=== PATIENT | female | born 1955 | race Caucasian/White ===

== ENCOUNTER 2016-09-26 10:06 | Inpatient (IN) | payer BC ==
[2016-08-28 14:13] VITALS: BMI 38.0
--- NOTE | 2016-08-28 14:47 | PAT Medication Instructions ---
Service Date August 28, 2016. Current Home Medication List Acetaminophen (Tylenol Arthritis Ext Rel), 2 TAB PO daily PRN for Pain Amitriptyline Hcl (Elavil), 25 MG PO HS Calcium (Caltrate), 1,200 MG PO BID Cholecalciferol (Vitamin D 1000 Unit), 1,000 INTER.UNIT PO QAM Cyanocobalamin (Vitamin B12 500MCG), 1,000 MCG PO QAM Etodolac (Etodolac), 1 TAB PO BID Ginkgo Biloba (Ginkgo Biloba), 120 MG PO QAM Egdfupxjvza-Lxzbxmdwhbc-Zlm C- (Glucosamine Chondroitin), 1 TABS PO BID Levothyroxine Sodium (Levothyroxine Sodium), 1 TAB PO QAM Multivitamins/Minerals (Mvi With Minerals), 1 TAB PO QPM Omeprazole (Omeprazole), 1 TAB PO QAM Turmeric (Curcuma Longa) (Turmeric), 538 MG PO QAM Vitamin E (Vitamin E 400 Iu), 400 INTER.UNIT PO QPM Medication Instructions For Your Scheduled Surgery - Hold the following medications 2 weeks prior to surgery: Turmeric (Curcuma Longa) (Turmeric), 538 MG PO QAM Vitamin E (Vitamin E 400 Iu), 400 INTER.UNIT PO QPM Vpscvghynwo-Lnvgvlluivc-Bpv C- (Glucosamine Chondroitin), 1 TABS PO BID Ginkgo Biloba (Ginkgo Biloba), 120 MG PO QAM - Hold the following medications 7 days prior to surgery per surgeon instructions: Etodolac (Etodolac), 1 TAB PO BID - Hold the following medications the morning of surgery: Cholecalciferol (Vitamin D 1000 Unit), 1,000 INTER.UNIT PO QAM Cyanocobalamin (Vitamin B12 500MCG), 1,000 MCG PO QAM Calcium (Caltrate), 1,200 MG PO BID - Take the following medications the morning of surgery with a sip of water: Omeprazole (Omeprazole), 1 TAB PO QAM Levothyroxine Sodium (Levothyroxine Sodium), 1 TAB PO QAM Acetaminophen (Tylenol Arthritis Ext Rel), 2 TAB PO daily PRN for Pain (if needed) - Take the following medications as scheduled the night before surgery: Multivitamins/Minerals (Mvi With Minerals), 1 TAB PO QPM Calcium (Caltrate), 1,200 MG PO BID Acetaminophen (Tylenol Arthritis Ext Rel), 2 TAB PO daily PRN for Pain Amitriptyline Hcl (Elavil), 25 MG PO HS If you have any questions please call us at [phone] or [phone] ( Becky) or [phone]
[2016-08-28 15:28] LABS: BASO % 0.2 %; BASO ABS # 0.01 K/uL (0-0.2); COMPLETE YES; EOS % 1.4 %; HEMATOCRIT 40.2 % (37-47); IG% 0.2 %; LYMPH % 25.3 %; LYMPH ABS # 1.22 K/uL (1.2-3.4); MEAN CORPUSCULAR HGB CONC 32.6 g/dl (32-36); MEAN PLATELET VOLUME 9.8 fL (7.4-10.4); MONO % 8.7 %; NEUT % 64.2 %; PLATELET COUNT 184 K/uL (130-400); RED BLOOD COUNT 4.37 M/uL (4.2-5.4); WHITE BLOOD COUNT 4.83 K/uL (4.8-10.8)
[2016-08-28 15:32] LABS: URINE APPEARANCE CLEAR (CLEAR); URINE BILIRUBIN NEG (NEG); URINE COLOR YELLOW; URINE NITRITE NEG (NEG); URINE PH 5.5 (4.5-7.5); URINE SPECIFIC GRAVITY 1.016 (1.000-1.030); UROBILINOGEN NEG (NEG); ZZUR CULT IF INDIC CLEAN CATCH NO
--- NOTE | 2016-08-28 15:34 | DIAGNOSTIC IMAGING REPORT ---
CHEST PREADMISSION(PA/LAT) CLINICAL HISTORY: PAT preoperative evaluation COMPARISON STUDY: No previous studies for comparison. FINDINGS: The bones soft tissues and hemidiaphragms are normal. The cardiomediastinal silhouette is normal. The lungs are clear. The pulmonary vasculature is normal. IMPRESSION: Negative chest. Electronically signed by: Boom Penny M.D. 08/28/2016 3:33 PM Dictated Date/Time: 08/28/2016 3:30 PM
[2016-08-28 15:38] LABS: MANUAL MICROSCOPIC REQUIRED? NO; PARTIAL THROMBOPLASTIN RATIO 1.1; PROTHROMBIN TIME (PATIENT) 10.9 SECONDS (9.0-12.0); REVIEW REQ? NO
[2016-08-28 16:37] LABS: BUN/CREATININE RATIO 23.2 (10-20); CALCIUM 9.4 mg/dl (8.5-10.1); CREATININE 0.51 mg/dl (0.60-1.20)
[2016-08-29 06:52] LABS: ESTIMATED AVERAGE GLUCOSE 108 mg/dl; HA1C FLAG Normal (Normal)
--- NOTE | 2016-09-25 22:46 | HISTORY & PHYSICAL EXAMINATION ---
DATE OF ADMISSION: 09/26/2016 CHIEF COMPLAINT: Right knee pain. HISTORY OF PRESENT ILLNESS: This is a 60-year-old female patient of Dr. Howe, complaining of chronic right knee pain, longstanding, now progressively getting worse. The patient has been diagnosed with end-stage osteoarthritis per clinical and radiographic exams. She has failed conservative treatment including narcotic medications and Tylenol. She has increased pain with weightbearing activities and her pain does interfere with her activities of daily living. PAST MEDICAL HISTORY: Carpal tunnel, hypothyroidism, osteoarthritis, sciatica, acid reflux, obesity, breast cancer, dental issues. SOCIAL HISTORY: She was a lifelong smoker, quit in 1992. She is a cjd-zwznw-zfr-week drinker. SURGICAL HISTORY: Bunion surgery on her right foot and meniscal surgery in one of her knees. FAMILY HISTORY: Noncontributory. REVIEW OF SYSTEMS: The patient complains of chronic right knee pain. Otherwise, denies any shortness of breath, chest pain, nausea, vomiting or any other joint complaints. MEDICATIONS: Include calcium daily, vitamin E daily, vitamin D daily, Turmeric 538 mg daily, ginkgo biloba daily, vitamin B12 daily, Centrum Silver daily, omeprazole 20 mg daily, levothyroxine 150 mcg daily, amitriptyline 25 mg daily, and etodolac 500 mg b.i.d. ALLERGIES: No known drug allergies. PHYSICAL EXAMINATION: GENERAL: Well-developed, well-nourished 60-year-old female in no acute distress. She is alert and oriented x3 and pleasant. HEENT: Normocephalic, atraumatic. Extraocular motions are intact. Pupils are equal and reactive to light. HEART: Regular rate and rhythm, no murmurs. LUNGS: Clear. ABDOMEN: Soft, nontender, bowel sounds present. EXTREMITIES: Right knee reveals a negative 15 to 90 degrees of motion. She has a varus deformity. She has medial joint line tenderness with effusion. She has crepitation with passive range of motion. She has 5/5 strength. NEUROLOGIC: Neurovascularly, she is intact in her right lower extremity. DIAGNOSES: Right knee end-stage osteoarthritis, carpal tunnel syndrome, hypothyroidism, osteoarthritis, acid reflux, obesity, history of breast cancer. PLAN: The patient was advised of her diagnosis. Indications, risks, benefits, and postop course have all been reviewed. The patient wished to proceed with right total knee arthroplasty. Necessary consent forms, preoperative testing and clearances will be obtained.
[2016-09-26] VITALS (7 sets, daily range): BP systolic 119–172; BP diastolic 72–89; PULSE 65–80; TEMP 36.5–36.9; O2SAT 93–96; Ht 162.6 cm; Wt 101.1 kg
[~2016-09-26] VITALS: Ht 162.6 cm; Wt 101.1 kg
[~2016-09-26 10:06] MED LIST: ACET1TAB84 PO; ACETAMINOPHEN 500 MG TAB PO SCH; AMT50 PO; BUPIVACAINE 0.25% 30 ML VIAL ONE; BUPIVACAINE 0.5 % 5 MG/1 ML PF 10ML VIAL ONE; CALCTAB5 PO; CEFAZOLIN 2000 MG/60 ML D5W 60 ML IV SCH; CHOL100027 PO; CYAN500T13 PO; CeleBREX 200 MG CAP PO SCH; DEXAMETHASONE 4 MG TAB PO SCH; ETOD500T95 PO; FAMOTIDINE 20 MG TAB PO SCH; GABAPENTIN 300 MG CAP PO SCH; GINK60CA2 PO; GLUCTAB7 PO; LACTATED RINGER'S 1000ML 1,000 ML IV SCH; LACTATED RINGER'S 1000ML IV SCH; LACTATED RINGER'S 500 ML IV SCH; LEVO150T9 PO; METOCLOPRAMIDE HCL 10 MG TAB PO SCH; MULTTAB PO; OMEP20TA PO; ROPIVACAINE 5MG/ML 30 ML 150 MG, BUPIVACAINE/EPINEPHR 0.5% MPF 30 ML, KETOROLAC TROMETH... INFIL SCH; TURM500T PO; VITA400C3 PO
[2016-09-26] MEDS ORDERED: TRAM-10 PO (10:50)
[2016-09-26] MEDS ORDERED: MIDAZOLAM HCL 1 MG/ML 2ML VIAL ONE (12:42)
--- NOTE | 2016-09-26 13:10 | History & Physical Bridge Note ---
H&P Re-Evaluation Bridge Note: I have examined the patient, reviewed the History & Physical and in the interval since the performance of the History & Physical I have noted the following changes of clinical significance: No changes noted
[2016-09-26] MEDS ORDERED: ORTHO JOINT ANESTHETIC ONE (13:20)
[2016-09-26] MEDS ORDERED: POVIDONE-IODINE OP SOLN 30 ML BTL ONE (13:20)
[2016-09-26] MEDS ORDERED: BACITRACIN 50000 UNIT VIAL ONE (13:20)
[2016-09-26] MEDS: TRANEXAMIC ACID INJ 1,000 MG in SODIUM CHLORIDE 0.9% 100ML 100 ML IV SCH ×2 (13:21→18:23)
[2016-09-26] MEDS ORDERED: PROPOFOL IV EMULSION 10 MG/ML 20 ML VIAL IV ONE (15:07)
[2016-09-26] MEDS ORDERED: PROMETHAZINE HCL INJ 12.5 MG in SODIUM CHLORIDE 0.9% 50ML 50 ML IV PRN (15:15)
[2016-09-26] MEDS ORDERED: FLUMAZENIL 0.1 MG/1 ML 10 ML VIAL IV PRN (15:15)
[2016-09-26] MEDS ORDERED: PHENYLEPHRINE 100MCG/ML 5ML SYR IV PRN (15:15)
[2016-09-26] MEDS ORDERED: ATROPINE SULFATE 0.1 MG/ML 5ML SYR IV PRN (15:15)
[2016-09-26] MEDS ORDERED: NALOXONE HCL 0.4 MG/1 ML VIAL/CARP IV PRN (15:15)
[2016-09-26] MEDS ORDERED: ONDANSETRON INJ 2 MG/ML 2 ML VIAL IV PRN ×2 (15:15→15:45)
[2016-09-26] MEDS ORDERED: EpHEDrine SULFATE INJ 50 MG/ML AMP IV PRN (15:15)
[2016-09-26] MEDS ORDERED: TRAMADOL HCL 50 MG TAB PO PRN (15:45)
[2016-09-26] MEDS ORDERED: SOD PHOSPHATE/SOD BIPHOSPHATE ENEMA 132 ML BTL PR PRN (15:45)
[2016-09-26] MEDS ORDERED: BISACODYL 10 MG SUPP PR PRN (15:45)
[2016-09-26] MEDS ORDERED: ZOLPIDEM TARTRATE 5 MG TAB PO PRN (15:45)
[2016-09-26] MEDS ORDERED: MoRPHine SULFATE 2 MG/ML CARP IV PRN (15:45)
[2016-09-26] MEDS ORDERED: MAGNESIUM HYDROXIDE SUSP 30 ML UDC PO PRN (15:45)
--- NOTE | 2016-09-26 15:53 | [facility] Operative Report ---
Operative Report Operative Date Sep 26, 2016. Pre-Operative Diagnosis Right knee degenerative joint disease,obesity Post-Operative Diagnosis same Procedure(s) Performed right total knee replacement Surgeon Dr. Rory Moreau Instructor Extension Work Surgeon(s) Boom Talbot PA-C Estimated Blood Loss 5 ml Findings tricompartmental djd oa chronic acl tear varus grade 4 medial Specimens a. right knee bone and tissue Drains 2 hemovac Anesthesia spinal sedation and regional and orthomix Complication(s) None Disposition Recovery Room / PACU Indications end stage bilateral knee djd I attest to the content of the Intraoperative Record and any orders documented therein. Any exceptions are noted below.
--- NOTE | 2016-09-26 16:07 | Anesthesiology Progress Note ---
Anesthesia Post Op Note Date & Time Sep 26, 2016 at 16:06 Vital Signs Pain Intensity: 0 Vital Signs Past 12 Hours Date Time Temp Pulse Resp B/P (MAP) Pulse Ox O2 Delivery O2 Flow Rate FiO2 09/26/16 15:55 77 16 138/85 97 Nasal Cannula 2 09/26/16 15:45 36.6 77 16 140/79 94 Room Air 09/26/16 10:34 36.6 80 20 172/72 96 Notes Mental Status: alert / awake / arousable, participated in evaluation Pt Amnestic to Procedure: Yes Nausea / Vomiting: adequately controlled Pain: adequately controlled Airway Patency, RR, SpO2: stable & adequate BP & HR: stable & adequate Hydration State: stable & adequate Neuraxial Anesthesia: was administered, sensory block is resolving Anesthetic Complications: no major complications apparent
--- NOTE | 2016-09-26 16:19 | DIAGNOSTIC IMAGING REPORT ---
TWO VIEWS RIGHT KNEE CLINICAL HISTORY: Postoperative examination. FINDINGS: AP and crosstable lateral portable views of the right knee are obtained. A right knee arthroplasty is in near anatomic alignment. There has been undersurface remodeling of the patella. No acute fracture is seen. There are expected postoperative changes around the knee including skin clips, a surgical drain, soft tissue edema, and subcutaneous gas. IMPRESSION: Expected postoperative changes status post right knee arthroplasty. No acute fracture is seen. Electronically signed by: Suman Mcintyre M.D. 09/26/2016 4:18 PM Dictated Date/Time: 09/26/2016 4:17 PM
--- NOTE | 2016-09-26 17:46 | Medical Consult ---
Consultation Note Date of Service Sep 26, 2016. Consultation Note DATE OF ADMISSION: 09/26/2016 DATE OF CONSULT: 09/26/16 REASON FOR CONSULT: Post operative medical management status post right knee arthroplasty HISTORY OF PRESENT ILLNESS: This is a 60-year-old female patient with PMH as mentioned below who is under orthopedic service for Right knee arthroplasty. Patient is post operative day 0. Pain is controlled. No chest pain, SOB, fever, chills, abdominal pain nausea, vomiting. We have been consulted for medical management post operatively. PAST MEDICAL HISTORY: Carpal tunnel, hypothyroidism, osteoarthritis, sciatica, acid reflux, obesity, breast cancer, dental issues. PAST SURGICAL HISTORY: Bunion surgery on her right foot and meniscal surgery in one of her knees. SOCIAL HISTORY: She was a lifelong smoker, quit in 1992. She is a amd-jvvuj-yil-week drinker. FAMILY HISTORY: Noncontributory. REVIEW OF SYSTEMS: As per HPI and rest of the systems reviewed and negative. MEDICATIONS: Include calcium daily, vitamin E daily, vitamin D daily, Turmeric 538 mg daily, ginkgo biloba daily, vitamin B12 daily, Centrum Silver daily, omeprazole 20 mg daily, levothyroxine 150 mcg daily, amitriptyline 25 mg daily, and etodolac 500 mg b.i.d. ALLERGIES: No known drug allergies. PHYSICAL EXAMINATION: GENERAL: Awake, allert and oriented x3 and pleasant. HEENT: Normocephalic, atraumatic. No icterus HEART: Regular rate and rhythm, no murmurs. LUNGS: AEBE, no wheezing, rhonchi ABDOMEN: Soft, nontender, bowel sounds present. EXTREMITIES: S/P Right knee arthroplasty , Drain + NEUROLOGIC: AAOX3, Limited due to right knee arthroplasty DIAGNOSES: Right knee end-stage osteoarthritis, carpal tunnel syndrome, hypothyroidism, osteoarthritis, acid reflux, obesity, history of breast cancer. ASSESSMENT AND PLAN: STATUS POST RIGHT KNEE ARTHROPLASTY POD # 0 -Pain mx, Wound care, DVT prophylaxis, PT/OT per primary team -Monitor H & H HYPOTHYROIDISM -Continue with synthroid GERD -Protonix HX OF BREAST CARCINOMA In remission DVT PROPHYLAXIS Per primary team DISPOSITION Per primary team Thank you for allowing us to participate in the care of this patient.
--- NOTE | 2016-09-26 18:52 | OPERATIVE REPORT ---
DATE OF OPERATION: 09/26/2016 INDICATION FOR PROCEDURE: The patient is a 60-year-old female with chronic bilateral knee pain with end-stage osteoarthritis in both of her knees with severe arthritis. She is obese. She has failed all conservative management including injection therapy. Her radiographs demonstrate that she has tricompartmental DJD both of her knees with bone on bone medial compartment bilaterally. PREOPERATIVE DIAGNOSIS: End-stage osteoarthritis, right knee. POSTOPERATIVE DIAGNOSIS: Same. PROCEDURE: Right total knee arthroplasty. SURGEON: Dr. Moreau. ROTARY DRUM TANNER: SIRI Lou ANESTHESIA: Spinal, Orthomix and regional block. OPERATIVE PROCEDURE: The patient had a spinal anesthetic placed and a regional block placed in the holding area, transferred to the operating room and placed under sedation. Exam of her knee demonstrates she had a very obese upper thigh. She had a flexion contracture about 10 degrees and flexion only to 90 degrees. There was no instability with varus valgus stress. A pneumatic tourniquet was placed over obese upper thigh and her right lower extremity was prepped and draped with ChloraPrep. The leg was elevated, exsanguinated with an Esmarch bandage. Pneumatic tourniquet was raised to 350 mmHg because of her obesity. Anterior incision was made across the right knee. Skin was incised longitudinally through the subcutaneous tissues down to the fascia. Subcutaneous flaps were elevated. Incision was made through medial retinaculum and extended up in the mid third of the quadriceps tendon and extended down to the medial tibial tubercle. Intraarticular findings demonstrated she had a chronic ACL tear, PCL was still intact. She had notch osteophytes, she had large tricompartmental osteophytes. She has [id number] in the medial compartment, had significant tricompartmental disease. She had no pseudolaxity. I used the [employer] Journey 2.0, total knee arthroplasty system using [place]-the [employer] MRI templating. She was templated for a size 5 femur and 4 tibia. To expose the knee the infrapatellar fat pad was resected and some of the fat pad over the anterior femur was resected. Lateral synovial bands which were fairly thick were released. The PCL was resected. The meniscal remnants were resected. I did a release subperiosteally around the medial tibial plateau releasing the MCL subperiosteally around the medial and posterior medial aspect of the knee to help balance the ligaments on the medial side. The femur was exposed. The custom femoral cutting block was pinned in position. The distal femoral cut was made. Then the size 5 5-in-1 cutting block was placed in position and the anterior, posterior and chamfer cuts were made. The knee was extended and a subperiosteal peel lateral release was performed around the patella and the patella width was measured and width was reproduced using a freehand cut technique and a 32 mm patellar component. The drill holes for the patella were made and then the excess lateral facet of patella was beveled off to prevent any impingement. The tibia was then subluxed and the custom tibial cutting block was pinned in position and the proximal tibial cut was made. We used the laminar communications programmer to assess the ligamentous balance in extension and flexion reassured with some more posterior medial release that we had balanced extension and flexion gaps. The tibia was then re-subluxed. The 4 tibial trial baseplate was externally rotated in line with the tibial tubercle, pinned in position. The punch for the stem was used. Then, the 5 femoral trial was inserted, centered and the notch cutting devices were used. A collet was placed and then the 12 poly insert gave balanced ligaments through full range of motion and patella tracked centrally. The trials were removed. The Orthomix anesthetic cocktail was injected per protocol. The knee was copiously irrigated with pulsatile lavage antibiotic solution and bacitracin. The final components were cemented with Simplex G cement. The final components were the 5 Oxinium right [employer]hew Journey 2.0 posterior stabilized femoral component, the 4 tibial baseplate, the 12 mm posterior stabilized high flex poly insert and 32 mm patella. While the cement was curing, the knee was soaked with Betadine soap per protocol. The knee was copiously irrigated with pulsatile lavage antibiotic solution and bacitracin again, 2 drains were brought out laterally connected to Hemovac. The quadriceps tendon and medial retinaculum were closed with interrupted [id number] #1 Vicryl sutures. The knee was taken through range of motion and appeared secure. The patient had 0 through 120 degrees range of motion. The wound was again irrigated. The subcutaneous tissue was closed with interrupted 2-0 Vicryl and the skin was closed with dionne and we applied a superficial wound VAC because of her obesity. SIRI Lou was my bilingual office assistant and functioned as bilingual office assistant for the entire procedure. He assisted in patient positioning, prepping, draping, soft tissue retraction, leg positioning, and instrument management during the procedure. He assisted in the subcutaneous skin closure also applied the superficial wound VAC. He will participate in postoperative care of the patient. I attest to the content of the Intraoperative Record and any orders documented therein. Any exception s are noted below.
[2016-09-26] MEDS ORDERED: MoRPHine SULFATE 4 MG/ML 1 ML CARP\\VIAL IV PRN (19:15)
[2016-09-26] MEDS: OXYCODONE HCL 10 MG TABCR (OXYCONTIN) PO SCH (21:52)
[2016-09-26] MEDS: TOCOPHERYL, DL-ALPHA 400 INTER.UNIT CAP PO SCH (21:52)
[2016-09-26] MEDS: D5W AND 1/2NSS + 20MEQ KCL 1,000 ML IV SCH (21:52)
[2016-09-26] MEDS: CALCIUM 600MG + VIT D 400 IU TAB PO SCH (21:52)
[2016-09-26] MEDS: ASPIRIN 81 MG ECTAB PO SCH (21:52)
[2016-09-26] MEDS: DOCUSATE SODIUM 100 MG CAP PO SCH (21:52)
[2016-09-26] MEDS: AMITRIPTYLINE HCL 25 MG TAB PO SCH (21:53)
[2016-09-26] MEDS: ACETAMINOPHEN 500 MG TAB PO SCH (21:54)
[2016-09-26] MEDS: CEFAZOLIN IV 2,000 MG in DEXTROSE 5% 50ML 50 ML IV SCH (22:19)
[2016-09-26] MEDS: OXYCODONE HCL IR 5 MG TAB (IMMEDIATE RELEASE) PO PRN (23:38)
[2016-09-27] MEDS: OXYCODONE HCL IR 5 MG TAB (IMMEDIATE RELEASE) PO PRN ×5 (03:30→20:54)
[2016-09-27 04:37] VITALS: BP 100/58; PULSE 74; TEMP 36.5; O2SAT 96
[2016-09-27] MEDS: D5W AND 1/2NSS + 20MEQ KCL 1,000 ML IV SCH ×2 (05:22→13:17)
[2016-09-27] MEDS: LEVOTHYROXINE 150 MCG TAB PO SCH (05:22)
[2016-09-27] MEDS: CEFAZOLIN IV 2,000 MG in DEXTROSE 5% 50ML 50 ML IV SCH (05:22)
[2016-09-27] MEDS: ACETAMINOPHEN 500 MG TAB PO SCH ×3 (05:23→22:15)
[2016-09-27 07:06] LABS: HEMATOCRIT 33.3 % (37-47); MEAN CELL VOLUME 91.5 fL (80-100); MEAN CORPUSCULAR HEMOGLOBIN 30.8 pg (25-34); MEAN CORPUSCULAR HGB CONC 33.6 g/dl (32-36); MEAN PLATELET VOLUME 9.7 fL (7.4-10.4); PLATELET COUNT 172 K/uL (130-400); RED BLOOD COUNT 3.64 M/uL (4.2-5.4); WHITE BLOOD COUNT 10.61 K/uL (4.8-10.8)
[2016-09-27 07:31] LABS: BUN/CREATININE RATIO 16.1 (10-20); CALCIUM 8.2 mg/dl (8.5-10.1); CREATININE 0.6 mg/dl (0.60-1.20); POTASSIUM 4.1 mmol/L (3.5-5.1)
[2016-09-27 07:37] VITALS: BP 116/72; PULSE 70; TEMP 36.7; O2SAT 97
[2016-09-27 08:31] VITALS: O2SAT 97
[2016-09-27] MEDS: CALCIUM 600MG + VIT D 400 IU TAB PO SCH ×2 (08:55→20:56)
[2016-09-27] MEDS: CHOLECALCIFEROL 1000 INTER.UNIT TAB PO SCH (08:56)
[2016-09-27] MEDS: ASPIRIN 81 MG ECTAB PO SCH ×2 (08:56→20:56)
[2016-09-27] MEDS: PANTOprazole SOD 40 MG TAB PO SCH (08:56)
[2016-09-27] MEDS: MULTIVITAMIN TAB PO SCH (08:56)
[2016-09-27] MEDS: CYANOCOBALAMIN 500 MCG TAB (VIT B-12) PO SCH (08:56)
[2016-09-27] MEDS: DOCUSATE SODIUM 100 MG CAP PO SCH ×2 (08:56→20:56)
[2016-09-27] MEDS: OXYCODONE HCL 10 MG TABCR (OXYCONTIN) PO SCH ×2 (08:59→20:55)
--- NOTE | 2016-09-27 10:29 | Anesthesiology Progress Note ---
Anesthesia Post Op Note Date & Time Sep 27, 2016 at 10:29 Vital Signs Pain Intensity: 0.0 Vital Signs Past 12 Hours Date Time Temp Pulse Resp B/P (MAP) Pulse Ox O2 Delivery O2 Flow Rate FiO2 09/27/16 08:31 97 Room Air 09/27/16 07:40 Room Air 09/27/16 07:37 36.7 70 14 116/72 (87) 97 Room Air 09/27/16 04:37 36.5 74 16 100/58 (72) 96 Room Air 09/26/16 23:38 Room Air 09/26/16 22:53 36.8 76 18 132/74 (93) 93 Room Air Notes Mental Status: alert / awake / arousable, participated in evaluation Pt Amnestic to Procedure: Yes Nausea / Vomiting: adequately controlled Pain: adequately controlled Airway Patency, RR, SpO2: stable & adequate BP & HR: stable & adequate Hydration State: stable & adequate Neuraxial Anesthesia: was administered, sensory block resolved Anesthetic Complications: no major complications apparent
[2016-09-27 11:59] VITALS: BP 130/78; PULSE 87; TEMP 36.8; O2SAT 99
--- NOTE | 2016-09-27 12:42 | Orthopedic Progress Note ---
Orthopedic Progress Note Date of Service Sep 27, 2016. Subjective Post OP Day: 1 Reports: feeling well, pain controlled w PO medications, Denies: complaints, chest pain, SOB, nausea / vomiting, light headedness, calf pain Objective calves soft nontender, N/V intact, capillary refill less than 2 sec., dressing C /D/I, A&O x3, toes mobile Date Time Temp Pulse Resp B/P (MAP) Pulse Ox O2 Delivery O2 Flow Rate FiO2 09/27/16 11:59 36.8 87 16 130/78 (95) 99 Room Air 09/27/16 08:31 97 Room Air 09/27/16 07:40 Room Air 09/27/16 07:37 36.7 70 14 116/72 (87) 97 Room Air 09/27/16 04:37 36.5 74 16 100/58 (72) 96 Room Air 09/26/16 23:38 Room Air 09/26/16 22:53 36.8 76 18 132/74 (93) 93 Room Air 09/26/16 19:25 36.9 70 17 120/74 (89) 95 Room Air 09/26/16 18:37 36.9 65 16 144/89 (107) 95 Room Air 09/26/16 17:50 36.6 69 16 119/75 (90) 93 Room Air 09/26/16 17:10 36.5 72 16 148/82 (104) 93 Nasal Cannula 2.0 09/26/16 16:40 95 Nasal Cannula 2.0 09/26/16 16:40 95 Nasal Cannula 2.0 09/26/16 16:15 36.4 75 16 122/86 95 Nasal Cannula 2 09/26/16 16:05 74 16 125/80 95 Nasal Cannula 2 09/26/16 15:55 77 16 138/85 97 Nasal Cannula 2 09/26/16 15:45 36.6 77 16 140/79 94 Room Air Laboratory Results 24 Hours: Test 09/27/16 06:54 Hematocrit 33.3 % Hemoglobin 11.2 g/dL Assessment & Plan Assessment: POD #1, Rt TKA Plan: PT/ OT DVT proph- ASA D/C planning- Home w HH As per medicine. Inhouse Planning Pain Management: Oxycontin, Ultram, Morphine, PO Tylenol, Oxy IR DVT Prophylaxis: TEDs, SCDs, ASA Discharge Planning Discharge Planning: home with home health Pain Management: Oxycontin, PO Tylenol, Oxy IR DVT Prophylaxis: TEDs, ASA Therapy: Physical Therapy, Occupational Therapy
[2016-09-27 15:06] VITALS: BP 131/76; PULSE 80; TEMP 37; O2SAT 97
--- NOTE | 2016-09-27 18:59 | Progress Note ---
Internal Med Progress Note Date of Service: Sep 27, 2016. Provider Documentation: SUBJECTIVE: ambulating fine' pain under control afebrile eating fine no sob OBJECTIVE: Vital Signs-as noted below Exam: General-alert and awake. Not in distress ENT-Normal hearing Neck-no neck masses, supple Lungs-cta b/l no wheezing or crackles Heart-s1 and s2 heard regular , no murmurs Abdomen-soft bowel sounds present non tender no distension Extremities- s/p right tka Neuro-alert and awake moves extremities Lab data as noted below. ASSESSMENT & PLAN: STATUS POST RIGHT KNEE ARTHROPLASTY POD # 1 management as per ortho HYPOTHYROIDISM synthroid GERD Protonix HX OF BREAST CARCINOMA In remission DVT PROPHYLAXIS Per primary team DISPOSITION per primary team Vital Signs: Date Time Temp Pulse Resp B/P (MAP) Pulse Ox O2 Delivery O2 Flow Rate FiO2 09/27/16 16:00 Room Air 09/27/16 15:06 37.0 80 18 131/76 (94) 97 Room Air 09/27/16 11:59 36.8 87 16 130/78 (95) 99 Room Air 09/27/16 08:31 97 Room Air 09/27/16 07:40 Room Air 09/27/16 07:37 36.7 70 14 116/72 (87) 97 Room Air 09/27/16 04:37 36.5 74 16 100/58 (72) 96 Room Air 09/26/16 23:38 Room Air 09/26/16 22:53 36.8 76 18 132/74 (93) 93 Room Air 09/26/16 19:25 36.9 70 17 120/74 (89) 95 Room Air Lab Results: Results Past 24 Hours Test 09/27/16 06:54 Range/Units White Blood Count 10.61 4.8-10.8 K/uL Red Blood Count 3.64 4.2-5.4 M/uL Hemoglobin 11.2 12.0-16.0 g/dL Hematocrit 33.3 37-47 % Mean Corpuscular Volume 91.5 80-100 fL Mean Corpuscular Hemoglobin 30.8 25-34 pg Mean Corpuscular Hemoglobin Concent 33.6 32-36 g/dl RDW Standard Deviation 43.7 36.4-46.3 fL RDW Coefficient of Variation 13.0 11.5-14.5 % Platelet Count 172 130-400 K/uL Mean Platelet Volume 9.7 7.4-10.4 fL Sodium Level 143 136-145 mmol/L Potassium Level 4.1 3.5-5.1 mmol/L Chloride Level 112 98-107 mmol/L Carbon Dioxide Level 24 21-32 mmol/L Anion Gap 7.0 3-11 mmol/L Blood Urea Nitrogen 10 7-18 mg/dl Creatinine 0.60 0.60-1.20 mg/dl Est Creatinine Clear Calc Drug Dose 115.3 ml/min Estimated GFR () 114.8 Estimated GFR (Non- 99.1 BUN/Creatinine Ratio 16.1 10-20 Random Glucose 138 70-99 mg/dl Calcium Level 8.2 8.5-10.1 mg/dl Hepatitis C Antibody Screen NEG NEG
[2016-09-27] MEDS: TOCOPHERYL, DL-ALPHA 400 INTER.UNIT CAP PO SCH (20:55)
[2016-09-27] MEDS: AMITRIPTYLINE HCL 25 MG TAB PO SCH (20:55)
[2016-09-27 22:59] VITALS: BP 147/76; PULSE 86; TEMP 37.1; O2SAT 97
[2016-09-28] MEDS: OXYCODONE HCL IR 5 MG TAB (IMMEDIATE RELEASE) PO PRN ×3 (00:37→12:42)
[2016-09-28] MEDS: ACETAMINOPHEN 500 MG TAB PO SCH (05:33)
[2016-09-28] MEDS: LEVOTHYROXINE 150 MCG TAB PO SCH (05:33)
[2016-09-28 05:38] LABS: HEMATOCRIT 31.1 % (37-47); MEAN CELL VOLUME 91.7 fL (80-100); MEAN CORPUSCULAR HEMOGLOBIN 30.1 pg (25-34); MEAN CORPUSCULAR HGB CONC 32.8 g/dl (32-36); MEAN PLATELET VOLUME 9.4 fL (7.4-10.4); PLATELET COUNT 156 K/uL (130-400); RED BLOOD COUNT 3.39 M/uL (4.2-5.4); WHITE BLOOD COUNT 7.51 K/uL (4.8-10.8)
[2016-09-28 06:08] LABS: BUN/CREATININE RATIO 17.4 (10-20); CALCIUM 7.8 mg/dl (8.5-10.1); CREATININE 0.54 mg/dl (0.60-1.20); POTASSIUM 3.9 mmol/L (3.5-5.1)
[2016-09-28 07:26] VITALS: BP 128/70; PULSE 79; TEMP 36.8; O2SAT 97
[2016-09-28] MEDS: DOCUSATE SODIUM 100 MG CAP PO SCH (08:35)
[2016-09-28] MEDS: MULTIVITAMIN TAB PO SCH (08:35)
[2016-09-28] MEDS: CALCIUM 600MG + VIT D 400 IU TAB PO SCH (08:35)
[2016-09-28] MEDS: OXYCODONE HCL 10 MG TABCR (OXYCONTIN) PO SCH (08:35)
[2016-09-28] MEDS: CHOLECALCIFEROL 1000 INTER.UNIT TAB PO SCH (08:35)
[2016-09-28] MEDS: PANTOprazole SOD 40 MG TAB PO SCH (08:36)
[2016-09-28] MEDS: ASPIRIN 81 MG ECTAB PO SCH (08:36)
[2016-09-28] MEDS: CYANOCOBALAMIN 500 MCG TAB (VIT B-12) PO SCH (08:36)
--- NOTE | 2016-09-28 09:03 | Orthopedic Progress Note ---
Orthopedic Progress Note Date of Service Sep 28, 2016. Subjective Post OP Day: 2 Reports: feeling well, pain controlled w PO medications, Denies: complaints, chest pain, SOB, nausea / vomiting, light headedness, calf pain Objective calves soft nontender, N/V intact, capillary refill less than 2 sec., dressing C /D/I, A&O x3, toes mobile Provena in tact. Date Time Temp Pulse Resp B/P (MAP) Pulse Ox O2 Delivery O2 Flow Rate FiO2 09/28/16 07:55 Room Air 09/28/16 07:26 36.8 79 20 128/70 (89) 97 Room Air 09/27/16 23:16 Room Air 09/27/16 22:59 37.1 86 16 147/76 (99) 97 Room Air 09/27/16 16:00 Room Air 09/27/16 15:06 37.0 80 18 131/76 (94) 97 Room Air 09/27/16 11:59 36.8 87 16 130/78 (95) 99 Room Air Laboratory Results 24 Hours: Test 09/28/16 05:25 Hematocrit 31.1 % Hemoglobin 10.2 g/dL Assessment & Plan Assessment: POD #2, Rt TKA Plan: PT/ OT DVT proph- ASA D/C planning- Home w HH today As per medicine. Inhouse Planning Pain Management: Oxycontin, Ultram, Morphine, PO Tylenol, Oxy IR DVT Prophylaxis: TEDs, SCDs, ASA Discharge Planning Discharge Planning: home with home health Pain Management: Oxycontin, PO Tylenol, Oxy IR DVT Prophylaxis: TEDs, ASA Therapy: Physical Therapy, Occupational Therapy
[2016-09-28] MEDS ORDERED: RXC5 PO (09:06)
[2016-09-28] MEDS ORDERED: ONDA8TAB6 PO (09:06)
[2016-09-28] MEDS ORDERED: ACET-1138 PO (09:06)
[2016-09-28] MEDS ORDERED: ASPEC81 PO (09:06)
[2016-09-28] MEDS ORDERED: OXYSR10 PO (09:06)
--- NOTE | 2016-09-28 09:09 | Discharge Instructions ---
Discharge Instructions Date of Service Sep 28, 2016. Admission Reason for Admission: Right Knee Degenerative Joint Disease Discharge Discharge Diagnosis / Problem: Right TKA Discharge Goals Goal(s): Improve function Activity Recommendations Activity Limitations: as noted below . Instructions / Follow-Up Instructions / Follow-Up ACTIVITY RECOMMENDATIONS: SELF CARE INSTRUCTIONS AFTER TOTAL KNEE REPLACEMENT A. You may need to continue a physical therapy program after discharge from the hospital. There are several options available to you. Your doctor will assist you in selecting the best one for you. 1. An out-patient facility 2 to 3 times a week for therapy or home therapy. 2. Continue working on all exercises taught to you in the hospital. Your goals should be to increase bending of your knee to 90 degrees and beyond and to fully straighten your knee. B. You may progress at your own pace from walking with a walker or crutches to a cane; then to no assistive devices. C. Make walking a part of your daily routine. Be up as much as comfortable with rest periods throughout the day. Rest with leg elevation is very important. Use the ice wrap frequently for the first 3-4 weeks. D. There are no restrictions on activities. 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 E. Wear the long elastic stockings (NOEMI hose) 20 hours a day for 2 weeks after surgery. They can be removed several times a day for laundering and for a bath. F. You may shower, no tub baths until cleared by your doctor. SPECIAL CARE INSTRUCTIONS: VERY IMPORTANT TO READ AND REVIEW A. There are a few signs you need to watch for after you are home. Call [facility] if you notice any of the followin. Increased severe knee pain. Some pain is expected especially when you exercise. 2. Increased swelling in your leg or knee; pain or swelling of the calf muscle in either lower leg. 3. Any fluid drainage from the incision. 4. Shortness of breath or chest pain. B. Please call [facility] at if you have any concerns or questions about your operation or recovery. The doctor or his nurse will return your call promptly. C. You must take antibiotics before dental work, bladder, bowel or other surgery. Your doctor will provide you with a permanent care to carry describing this precaution. IMPORTANT: * REMEMBER TO TAKE ASPIRIN, 81 MG, TWICE DAILY FOR 4 WEEKS UNLESS OTHERWISE DIRECTED. THIS IS YOUR BLOOD THINNER. * HIGH RISK PATIENTS MAY BE PRESCRIBED A STRONGER BLOOD THINNER. THIS WILL BE PROVIDED AT DISCHARGE. * CALL IF INCREASED PAIN, REDNESS, DRAINAGE OR FEVER GREATER THAT 101. * WEAR NOEMI HOSE 20 HOURS PER DAY FOR 2 WEEKS. * YOU MAY HAVE A LARGE BAND-AID LIKE DRESSING (SILVERON). THIS WILL REMAIN ON YOUR INCISION FOR 7 DAYS, THEN CAN BE REMOVED. IF INCISION IS LEAKING THROUGH DRESSING, CALL THE OFFICE . FOLLOW UP VISIT: If appointment is not already scheduled: Please call [facility] to make a follow-up appointment for 2 weeks after your surgery at . YOU HAVE A WOUND VAC ON YOUR INCISION, REMOVE IT 1 WK POST OP AND DISCARD ALL PARTS. REPLACE WITH STERILE DRESSINGS DAILY UNTIL FOLLOW UP. Current Hospital Diet Patient's current hospital diet: Regular Diet Discharge Diet Recommended Diet: Regular Diet Procedures Procedures Performed: Right total knee arthroplasty Pending Studies Studies pending at discharge: no Laboratory Results Hemoglobin A1c Test 08/28/16 15:00 Range/Units Estimated Average Glucose 108 mg/dl Hemoglobin A1c 5.4 4.5-5.6 % Medical Emergencies . Who to Call and When: Medical Emergencies: If at any time you feel your situation is an emergency, please call 911 immediately. . Non-Emergent Contact Non-Emergency issues call your: Primary Care Provider . "Provider Documentation" section prepared by Boom Talbot. . VTE Core Measure Inpt VTE Proph given/why not?: Other Anticoagulation (ASA), T.E.Jann Contreras, [facility] [place] Drug Monitoring Program Search Results: patient reviewed within database, no issues identified
[2016-09-28 09:52] VITALS: BP 116/74; PULSE 78; O2SAT 95
[2016-09-28 09:56] VITALS: BP 128/70; PULSE 79; TEMP 36.8; O2SAT 97
--- NOTE | 2016-10-09 21:30 | DISCHARGE SUMMARY ---
HISTORY OF PRESENT ILLNESS: This is a 60-year-old female patient of Dr. Moreau's complaining of chronic right knee pain, long-standing, now progressively getting worse. The patient failed conservative treatment and elected to proceed with a right total knee arthroplasty. PAST MEDICAL HISTORY: Carpal tunnel, hypothyroidism, osteoarthritis, sciatica, acid reflux, obesity, breast cancer and dental issues. POSTOPERATIVE COURSE: The patient underwent a right knee arthroplasty on 09/26/2016. She was followed closely with medical consultation, DVT prophylaxis in the form of aspirin, pain control and physical therapy. The patient did well postoperatively and was discharged home on postoperative day #2. PHYSICAL EXAMINATION: On discharge right knee Silverlon dressing was clean, dry and intact. There was no redness or drainage. She had no calf tenderness. Negative Homans sign. Neurologically and neurovascularly she was intact in her right lower extremity. DIAGNOSES: Status post right total knee arthroplasty with a history of carpal tunnel, hypothyroidism, osteoarthritis, sciatica, acid reflux, obesity, breast cancer and dental issues. PLAN: The patient was discharged home with home health services. She will continue her preadmission medications with the addition of pain medications. She will continue aspirin twice daily for DVT prophylaxis. Follow up with Dr. Moreau as scheduled as an outpatient.
== END 2016-09-28 13:35 | disposition home health service (06) | DRG 470 ==
LOC: C.ACU 10:06 → C.3E 15:52 → ENRESERV 16:08
PROVIDERS: ADMIT Orthopaedic Surgery Sports Medicine; ATTEND Orthopaedic Surgery Sports Medicine
PROC: 0SRC0J9 Replacement of Right Knee Joint with Synthetic Substitute, Cemented, Open Approach (ICD-10-PCS; principal; 2016-09-26 12:50)
DX: M17.11 Unilateral primary osteoarthritis, right knee (principal); E03.9 Hypothyroidism, unspecified; K21.9 Gastro-esophageal reflux disease without esophagitis; E66.9 Obesity, unspecified; G56.00 Carpal tunnel syndrome, unspecified upper limb; R20.0 Anesthesia of skin; D64.9 Anemia, unspecified; M54.30 Sciatica, unspecified side; Z87.891 Personal history of nicotine dependence; Z68.38 Body mass index [BMI] 38.0-38.9, adult; Z85.3 Personal history of malignant neoplasm of breast; Z79.899 Other long term (current) drug therapy; Z79.1 Long term (current) use of non-steroidal anti-inflammatories (NSAID)

== ENCOUNTER → 2017-11-19 | Outpatient (CLI) | payer BC ==
[~2017-11-19] MED LIST changes: +ACET-1138 PO; -ACETAMINOPHEN 500 MG TAB PO SCH; +ASPI-320 PO; -BUPIVACAINE 0.25% 30 ML VIAL ONE; -BUPIVACAINE 0.5 % 5 MG/1 ML PF 10ML VIAL ONE; +CALC500C70 PO; -CEFAZOLIN 2000 MG/60 ML D5W 60 ML IV SCH; -CeleBREX 200 MG CAP PO SCH; -DEXAMETHASONE 4 MG TAB PO SCH; +ETOD500T PO; -ETOD500T95 PO; -FAMOTIDINE 20 MG TAB PO SCH; -GABAPENTIN 300 MG CAP PO SCH; -LACTATED RINGER'S 1000ML 1,000 ML IV SCH; -LACTATED RINGER'S 1000ML IV SCH; -LACTATED RINGER'S 500 ML IV SCH; -METOCLOPRAMIDE HCL 10 MG TAB PO SCH; +OXYC-164 PO; +OXYSR10 PO; -ROPIVACAINE 5MG/ML 30 ML 150 MG, BUPIVACAINE/EPINEPHR 0.5% MPF 30 ML, KETOROLAC TROMETH... INFIL SCH; +RXC5 PO; +VITA400C28 PO
--- NOTE | 2017-11-19 15:27 | DIAGNOSTIC IMAGING REPORT ---
CHEST 2 VIEWS ROUTINE HISTORY: Preop. COMPARISON: Chest 08/28/2016. FINDINGS: The lungs are clear. Cardiac silhouette is normal in size. No pleural effusions. No pneumothorax. IMPRESSION: No acute process. Electronically signed by: Hosea Steward M.D. 11/19/2017 3:25 PM Dictated Date/Time: 11/19/2017 3:24 PM
[2017-11-19 16:12] LABS: BASO % 0.4 %; BASO ABS # 0.02 K/uL (0-0.2); EOS % 1.3 %; EOS ABS # 0.07 K/uL (0-0.5); HEMATOCRIT 38.3 % (37-47); HEMOGLOBIN 12.6 g/dL (12.0-16.0); IG# 0.01 K/uL (0.00-0.02); LYMPH ABS # 1.42 K/uL (1.2-3.4); MEAN CELL VOLUME 93.9 fL (80-100); MEAN CORPUSCULAR HEMOGLOBIN 30.9 pg (25-34); MEAN CORPUSCULAR HGB CONC 32.9 g/dl (32-36); MEAN PLATELET VOLUME 10.1 fL (7.4-10.4); MONO % 7.4 %; MONO ABS # 0.39 K/uL (0.11-0.59); NEUT % 63.7 %; NEUT ABS # 3.34 K/uL (1.4-6.5); PLATELET COUNT 167 K/uL (130-400); RED CELL DISTRIBUTION WIDTH CV 12.9 % (11.5-14.5); RED CELL DISTRIBUTION WIDTH SD 44.7 fL (36.4-46.3); WHITE BLOOD COUNT 5.25 K/uL (4.8-10.8)
[2017-11-19 16:21] LABS: ALBUMIN 3.2 gm/dl (3.4-5.0); BLOOD UREA NITROGEN 16 mg/dl (7-18); CALCIUM 8.4 mg/dl (8.5-10.1); CARBON DIOXIDE 25 mmol/L (21-32); GLUCOSE 92 mg/dl (70-99); POTASSIUM 4.2 mmol/L (3.5-5.1); SODIUM 140 mmol/L (136-145)
[2017-11-19 16:23] LABS: PTT PATIENT 25.7 SECONDS (21.0-31.0)
[2017-11-20 07:00] LABS: HEMOGLOBIN A1C 5.3 % (4.5-5.6)
== END | disposition home or self-care (01) ==
LOC: C.CPL 08:54
PROVIDERS: ATTEND Orthopaedic Surgery Sports Medicine
DX: Z01.818 Encounter for other preprocedural examination (principal)